=== PATIENT | female | born 1965 ===

== ENCOUNTER 2025-06-04 00:12 | Inpatient (IN) | payer OTHER ==
[~2025-06-04] VITALS: Ht 157.5 cm; Wt 79.3 kg
[2025-06-04] VITALS (10 sets, daily range): BP systolic 111–155; BP diastolic 66–86; PULSE 69–127; RESP 14–19; TEMP 97.3–98.7; O2SAT 93–98
--- NOTE | 2025-06-04 00:42 | ED.PDOC ---
History of Present Illness HPI Comments 59 year old female presents to the ED via EMS with a chief complaint of generalized weakness onset last night. Per EMS, patient was seen at [place] earlier today, had Mozeta infusion and was told weakness is a side effect. Family called 911, stated patient was weak, they were not able to take care of her. Patient states she is currently experiencing chills and feels weak. PMHx breast cancer. Denies chest pain, shortness of breath, fever, nausea, vomiting, diarrhea. No other symptoms or modifying factors present at this time. 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 Family History Family History: Reviewed,noncontributory to illness, No family hx of Cancer, No family hx of DM, No family hx of Heart dorian, No family hx of HTN, No family hx ofKidney dorian, No family hx of Liver dorian, No family hx of Lung dorian, No family hx of Stroke Social History Smoker: Non-Smoker Alcohol: Denies ETOH Use Drugs: Denies Drug Use Lives In: Home Constitutional: reports: chills, weakness; denies: diaphoresis, fatigue, fever, malaise, sweats, others EENTM: denies: blurred vision, double vision, ear bleeding, ear discharge, ear drainage, ear pain, ear ringing, eye pain, eye redness, hearing loss, mouth pain, mouth swelling, nasal discharge, nose bleeding, nose congestion, nose pain, photophobia, tearing, throat pain, throat swelling, voice changes, others Respiratory: denies: cough, hemoptysis, orthopnea, SOB at rest, shortness of breath, SOB with excertion, stridor, wheezing, others Cardiovascular: denies: chest pain, dizzy spells, diaphoresis, Dyspnea on exertion, edema, irregular heart beat, left arm pain, lightheadedness, palpitations, PND, syncope, others Gastrointestinal: denies: abdomen distended, abdominal pain, blood streaked bowels, constipated, diarrhea, dysphagia, difficulty swallowing, hematemesis, melena, nausea, poor appetite, poor fluid intake, rectal bleeding, rectal pain, vomiting, others Genitourinary: denies: abnormal vagina bleeding, burning, dyspareunia, dysuria, flank pain, frequency, hematuria, incontinence, pain, , vagina discharge, urgency, others Neurological: reports: weakness; denies: dizziness, fainting, headache, left sided numbness, left sided weakness, numbness, paresthesia, pre-existing deficit, right sided numbness, right sided weakness, seizure, speech problems, tingling, tremors, others Musculoskeletal: denies: back pain, gout, joint pain, joint swelling, muscle pain, muscle stiffness, neck pain, others Integumetry: denies: bruises, change in color, change in hair/nails, dryness, laceration, lesions, lumps, rash, wounds, others Allergic/Immunocompromised: denies: Difficulty Healing, Frequent Infections, Hives, Itching, others Hematologic/Lymphatic: denies: anemia, blood clots, easy bleeding, easy bruising, swollen glands, others Endocrine: denies: excessive hunger, excessive sweating, excessive thirst, excessive urination, flushing, intolerance to cold, intolerance to heat, unexplained weight gain, unexplained weight loss, others Psychiatric: denies: anxiety, bipolar disorder, depression, hopeless, panic disorder, schizophrenia, sleepless, suicidal, others All Other Systems: Reviewed and Negative Physical Exam General Appearance: Normal HEENT: Normal ENT Inspection, Pharynx Normal, TMs Normal Neck: Full Range of Motion, Non-Tender, Normal, Normal Inspection Respiratory: Chest Non-Tender, Lungs Clear, No Accessory Muscle Use, No Respiratory Distress, Normal Breath Sounds Cardiovascular: No Edema, No JVD, No Murmur, No Gallop, Normal Peripheral Pulses, Regular Rate/Rhythm Breast Exam: Deferred Gastrointestinal: No Organomegaly, Non Tender, No Pulsatile Mass, Normal Bowel Sounds, Soft Genitalia: Deferred Pelvic: Deferred Rectal: Deferred Extremities: No calf tenderness, Normal capillary refill, Normal inspection, Normal range of motion, Non-tender, No pedal edema Musculoskeletal : Apperance: Normal Neurologic: Alert, geometrician II-XII nml as Tested, No Motor Deficits, Normal Affect, Normal Mood, No Sensory Deficits Cerebellar Function: Normal Reflexes: Normal Skin: Dry, Normal Color, Warm Lymphatic: No Adenopathy Was a procedure done? Was a procedure done?: No Differential Dx Considerations may include: Electrolyte abnormalities, ACS, CVA, viral syndrome, medication reaction X-Ray, Labs, Meds, VS Vital Signs Date Time Temp Pulse Resp B/P (MAP) Pulse Ox O2 Delivery O2 Flow Rate FiO2 06/04/25 02:50 126 18 153/79 (103) 93 06/04/25 01:25 123 13 147/105 (119) 94 06/04/25 00:50 127 18 95 Room Air* 0 21 06/04/25 00:45 98.7 122 18 153/79 (103) 94 98.7 06/04/25 00:26 97.9 126 16 154/96 96 97.9 06/04/25 00:26 113 Lab Test 06/04/25 01:47 06/04/25 00:48 Range/Units Troponin I High Sensitivity 181 *H 104 *H </=34 ng/L White Blood Count 8.0 4.4-10.8 10^3/uL Red Blood Count 4.39 4.0-5.20 10^6/uL Hemoglobin 14.1 12.2-16.2 g/dL Hematocrit 41.1 36.0-46.0 % Mean Corpuscular Volume 93.6 80.0-100.0 fL Mean Corpuscular Hemoglobin 32.1 H 28.0-32.0 pg Mean Corpuscular Hemoglobin Concent 34.3 32.0-36.0 g/dL Red Cell Distribution Width 12.4 11.8-14.3 % Platelet Count 172 140-450 10^3/uL Mean Platelet Volume 7.7 6.9-10.8 fL Neutrophils (%) (Auto) 89.3 H 37.0-80.0 % Lymphocytes (%) (Auto) 6.3 L 10.0-50.0 % Monocytes (%) (Auto) 3.2 0.0-12.0 % Eosinophils (%) (Auto) 0.2 0.0-7.0 % Basophils (%) (Auto) 1.0 0.0-2.0 % Neutrophils # (Auto) 7.1 1.6-8.6 10 ^3/uL Lymphocytes # (Auto) 0.5 0.4-5.4 10 ^3/uL Monocytes # (Auto) 0.3 0-1.3 10 ^3/uL Eosinophils # (Auto) 0 0-0.8 10 ^3/uL Basophils # (Auto) 0.1 0-0.2 10 ^3/uL Nucleated Red Blood Cells 0.0 % Sodium Level 138 136-145 mmol/L Potassium Level 3.5 3.5-5.1 mmol/L Chloride Level 100 98-107 mmol/L Carbon Dioxide Level 27 20-31 mmol/L Anion Gap 11 5-15 Blood Urea Nitrogen 16 9-23 mg/dL Creatinine 0.99 0.550-1.02 mg/dL Glomerular Filtration Rate Calc 65 >90 mL/min BUN/Creatinine Ratio 16.2 10.0-20.0 Serum Glucose 174 H 74-106 mg/dL Lactic Acid Level 3.0 *H 0.4-2.0 mmol/L Calcium Level 9.6 8.7-10.4 mg/dL [place] [address] Ph: [phone] DIAGNOSTIC IMAGING Diagnostic Imaging Report : [id number] Signed PATIENT: ELVI SEPULVEDA ACCT: [id number] UNIT: [id number] : 1965 LOC: ER ROOM / BED: / AGE / SEX: 59 / F ADM STATUS: REG ER SERVICE ORDERING PHYSICIAN: VINOD VERAS MD PROCEDURE(s): CXRP - CHEST PORTABLE REASON: weakness ORDER NUMBER(s): [id number], ACCESSION NUMBER(s): [id number] EXAM: XY CHEST PORTABLE CLINICAL HISTORY: weakness TECHNIQUE: Single AP view of the chest WID: COMPARISON: None FINDINGS: Lines and tubes: None Chest: Mild cardiomegaly without pulmonary vascular congestion. No pleural effusion, pneumothorax, or consolidation. Linear left basilar scarring or atelectasis. The osseous structures are grossly intact. IMPRESSION: 1. Mild cardiomegaly. No acute cardiopulmonary abnormality. ATED BY: DYLAN LOWERY MD DICTATED DATE/TIME: 06/04/25 0116 SIGNED BY: DYLAN LOWERY MD SIGNED DATE/TIME: 06/04/25 0116 CC: Time of 1ST Reevaluation: 00:50 Reevaluation 1ST: Unchanged Patient Education/Counseling: Diagnosis, Treatment, Prognosis Family Education/Counseling: No Family Present SEPSIS Sepsis Screen Date sepsis recognized/suspect: Jun 04, 2025 Time Sepsis recognized/suspect: 003 Recent Procedure: No On Antibiotic Therapy: No Respiratory Rate >20: No Heart Rate >90: Yes Temp<36 C (96.8 F) or >38.3 C: No SBP <90 or MAP <65 mmHG: No New Acute Mental Status Change: No Is the patient on CPAP, BIPAP,: No Physician Orders Electrocardigram (06/04/25 00:29) Urinalysis (06/04/25 00:34) Chest Portable (06/04/25 00:34) Troponin-I Hs (06/04/25 03:34) NS (06/04/25 03:00) Vital Signs Date Time Temp Pulse Resp B/P (MAP) Pulse Ox O2 Delivery O2 Flow Rate FiO2 06/04/25 02:50 126 18 153/79 (103) 93 06/04/25 01:25 123 13 147/105 (119) 94 06/04/25 00:50 127 18 95 Room Air* 0 21 06/04/25 00:45 98.7 122 18 153/79 (103) 94 98.7 06/04/25 00:26 97.9 126 16 154/96 96 97.9 06/04/25 00:26 113 Laboratory Tests Test 06/04/25 00:48 Lactic Acid Level 3.0 mmol/L (0.4-2.0) *H White Blood Count 8.0 10^3/uL (4.4-10.8) Departure 1 Departure Time of Disposition: 03:01 (Patient with a worsening weakness and near-syncope. Patient found to have an elevated troponin elevated lactic acid. We will treat patient with the fluids and admit patient for further workup and expert consultation) Impression: Primary Impression: Near syncope Additional Impressions: Generalized weakness Elevated troponin Breast cancer Qualified Codes: C50.919 - Malignant neoplasm of unspecified site of unspecified female breast Disposition: ADMITTED INPATIENT Admit to: [facility] Condition: Guarded Critical Care Note Critical Care Time?: Yes Critical care comment: Near syncope with elevated troponin Authorized and Performed by: Vinod Veras MD Total critical care time: Approximately 38 minutes Due to a high probability of clinically significant, life threatening deterioration, the patient required my highest level of preparedness to intervene emergently and I personally spent this critical care time directly and personally managing the patient. This critical care time included obtaining a history; examining the patient; pulse oximetry; ordering and review of studies; arranging urgent treatment with development of a management plan; evaluation of patient's response to treatment; frequent reassessment; and, discussions with other providers. This critical care time was performed to assess and manage the high probability of imminent, life-threatening deterioration that could result in multi-organ failure. It was exclusive of separately billable procedures and treating other patients and teaching time. Please see my other sections and the rest of the note for further information on patient assessment and treatment. Stability Stability form required: No I personally scribed for VINOD VERAS MD ([email or web address]) on 06/04/25 at 00:42. Electronically submitted by Connie Marquez ([email or web address]). I personally scribed for VINOD VERAS MD ([email or web address]) on 06/04/25 at 01:27. Electronically submitted by Connie Marquez ([email or web address]). VINOD VERAS MD Jun 04, 2025 00:42
[2025-06-04 01:01] LABS: Hematocrit 41.1 % (36.0-46.0); Hemoglobin 14.1 g/dL (12.2-16.2); Mean Corpuscular Hemoglobin 32.1 pg (28.0-32.0); Mean Corpuscular Volume 93.6 fL (80.0-100.0); Nucleated Red Blood Cells % 0.0 %
[2025-06-04 01:11] LABS: Anion Gap 11 (5-15); Carbon Dioxide 27 mmol/L (20-31); Chloride 100 mmol/L (98-107); Sodium 138 mmol/L (136-145)
[2025-06-04 01:12] LABS: Calcium 9.6 mg/dL (8.7-10.4)
[2025-06-04 01:14] LABS: Potassium 3.5 mmol/L (3.5-5.1)
[2025-06-04 01:17] LABS: BUN/Creatinine Ratio 16.2 (10.0-20.0); Blood Urea Nitrogen 16 mg/dL (9-23)
[2025-06-04 01:19] LABS: Glucose 174 mg/dL (74-106)
--- NOTE | 2025-06-04 01:19 | DVH ---
EXAM: XY CHEST PORTABLE CLINICAL HISTORY: weakness TECHNIQUE: Single AP view of the chest WID: COMPARISON: None FINDINGS: Lines and tubes: None Chest: Mild cardiomegaly without pulmonary vascular congestion. No pleural effusion, pneumothorax, or consolidation. Linear left basilar scarring or atelectasis. The osseous structures are grossly intact. IMPRESSION: 1. Mild cardiomegaly. No acute cardiopulmonary abnormality.
[2025-06-04 01:23] LABS: Lactic Acid w/Reflex 3.0 mmol/L (0.4-2.0)
[2025-06-04] MEDS: SODIUM CHLORIDE 0.9% 1,000 ML IV ONE (03:26)
[2025-06-04] MEDS ORDERED: MORPHINE SULFATE INJ 2 MG/ml SYRG IV PRN (04:00)
[2025-06-04] MEDS ORDERED: NITROGLYCERIN 0.4 MG SL TAB SL PRN (04:00)
[2025-06-04] MEDS: SODIUM CHLORIDE 0.9% 500 ML IV ONE (05:00)
[2025-06-04] MEDS ORDERED: ACETAMINOPHEN 325 MG TAB PO PRN (05:00)
[2025-06-04] MEDS ORDERED: ALBUTEROL SULF 2.5 MG/0.5ML(0.5%) NEB SOLN NEB PRN (05:00)
--- NOTE | 2025-06-04 05:03 | DVHHP2 ---
History of Present Illness Reason for Visit: Generalized weakness History of Present Illness 59-year-old female presents for evaluation of generalized weakness. Patient is status post left mastectomy and currently undergoing chemotherapy. She had her chemotherapy infusion yesterday and shortly after she developed severe gener alized weakness with fatigue. On arrival patient was noted to have elevated troponin levels. She currently denies chest pain or shortness for breath. She reports experiencing chills. Past Medical History Cancer Past Surgical History Mastectomy Family History Noncontributory Smoke: No ALCOHOL: none Drugs: None Lives: with Family Review of Systems Review of Systems Review of systems are currently negative otherwise addressed in HPI. Allergies: Coded Allergies: NO KNOWN ALLERGIES (Unverified , 06/04/25) Medications Current Medications Medications Dose Ordered Sig/Gretel Route Start Time Stop Time Status Last Admin Dose Admin Nitroglycerin 0.4 mg Q5MINP PRN SL 06/04/25 04:00 Morphine Sulfate 2 mg Q30M PRN IV 06/04/25 04:00 Ceftriaxone Sodium 50 ml @ 100 mls/hr DAILY@09 IV 06/05/25 09:00 Aspirin 162 mg DAILY PO 06/04/25 10:00 Atorvastatin Calcium 10 mg HS PO 06/04/25 22:00 Hydrochlorothiazide 12.5 mg DAILY PO 06/04/25 10:00 Albuterol 2.5 mg Q6HPRN PRN NEB 06/04/25 05:00 Acetaminophen/ Hydrocodone Bitart 1 tab Q4HP PRN PO 06/04/25 05:00 Ondansetron HCl 4 mg Q4HP PRN IV 06/04/25 05:00 Enoxaparin Sodium 40 mg DAILY SC 06/04/25 10:00 UNV Acetaminophen 650 mg Q6HP PRN PO 06/04/25 05:00 Exam Vital Signs Vital Signs Date Time Temp Pulse Resp B/P (MAP) Pulse Ox O2 Delivery O2 Flow Rate FiO2 06/04/25 02:50 126 18 153/79 (103) 93 06/04/25 00:50 Room Air* 0 21 06/04/25 00:45 98.7 98.7 Exam Gen: 59-year-old female in mild distress Skin: Warm, dry, normal color and texture, no rash. HEENT: Normocephalic atraumatic, mucous membranes moist and pink. Neck: Cervical and supraclavicular nodes normal without enlargement, trachea is midline, thyroid gland is normal without masses. Pulmonary: Clear to auscultation and percussion bilaterally. Cardiac: Sinus tachycardia Abdomen: Soft, nontender, nondistended, bowel sounds present all 4 quadrants, no guarding, no rigidity, no organomegaly. Extremities: No cyanosis, clubbing, no edema Neuro: Cranial nerves II through XII grossly intact, normal affect and speech, no focal motor deficits. Labs/Xrays ORDERING PHYSICIAN: VINOD XIONG MD PROCEDURE(s): CXRP - CHEST PORTABLE REASON: weakness ORDER NUMBER(s): [id number], ACCESSION NUMBER(s): [id number] EXAM: XY CHEST PORTABLE CLINICAL HISTORY: weakness TECHNIQUE: Single AP view of the chest WID: COMPARISON: None FINDINGS: Lines and tubes: None Chest: Mild cardiomegaly without pulmonary vascular congestion. No pleural effusion, pneumothorax, or consolidation. Linear left basilar scarring or atelectasis. The osseous structures are grossly intact. IMPRESSION: 1. Mild cardiomegaly. No acute cardiopulmonary abnormality. Labs Test 06/04/25 03:30 06/04/25 03:00 06/04/25 00:48 Range/Units Troponin I High Sensitivity 267 *H </=34 ng/L Lactic Acid Level 3.6 *H 0.4-2.0 mmol/L White Blood Count 8.0 4.4-10.8 10^3/uL Red Blood Count 4.39 4.0-5.20 10^6/uL Hemoglobin 14.1 12.2-16.2 g/dL Hematocrit 41.1 36.0-46.0 % Mean Corpuscular Volume 93.6 80.0-100.0 fL Mean Corpuscular Hemoglobin 32.1 H 28.0-32.0 pg Mean Corpuscular Hemoglobin Concent 34.3 32.0-36.0 g/dL Red Cell Distribution Width 12.4 11.8-14.3 % Platelet Count 172 140-450 10^3/uL Mean Platelet Volume 7.7 6.9-10.8 fL Neutrophils (%) (Auto) 89.3 H 37.0-80.0 % Lymphocytes (%) (Auto) 6.3 L 10.0-50.0 % Monocytes (%) (Auto) 3.2 0.0-12.0 % Eosinophils (%) (Auto) 0.2 0.0-7.0 % Basophils (%) (Auto) 1.0 0.0-2.0 % Neutrophils # (Auto) 7.1 1.6-8.6 10 ^3/uL Lymphocytes # (Auto) 0.5 0.4-5.4 10 ^3/uL Monocytes # (Auto) 0.3 0-1.3 10 ^3/uL Eosinophils # (Auto) 0 0-0.8 10 ^3/uL Basophils # (Auto) 0.1 0-0.2 10 ^3/uL Nucleated Red Blood Cells 0.0 % Sodium Level 138 136-145 mmol/L Potassium Level 3.5 3.5-5.1 mmol/L Chloride Level 100 98-107 mmol/L Carbon Dioxide Level 27 20-31 mmol/L Anion Gap 11 5-15 Blood Urea Nitrogen 16 9-23 mg/dL Creatinine 0.99 0.550-1.02 mg/dL Glomerular Filtration Rate Calc 65 >90 mL/min BUN/Creatinine Ratio 16.2 10.0-20.0 Serum Glucose 174 H 74-106 mg/dL Calcium Level 9.6 8.7-10.4 mg/dL SEPSIS Sepsis Screen Date sepsis recognized/suspect: Jun 04, 2025 Time Sepsis recognized/suspect: 54 Recent Procedure: No On Antibiotic Therapy: No Respiratory Rate >20: No Heart Rate >90: Yes Temp<36 C (96.8 F) or >38.3 C: No SBP <90 or MAP <65 mmHG: No New Acute Mental Status Change: No Is the patient on CPAP, BIPAP,: No Physician Orders Electrocardigram (06/04/25 00:29) Urinalysis (06/04/25 00:34) Chest Portable (06/04/25 00:34) Admit (06/04/25 03:46) Nitroglycerin Sublingual (Ntrostat Subli (06/04/25 04:00) Morphine Sulfate Injection (06/04/25 04:00) Stat Ekg For Chest Pain (06/04/25 03:46) Notify Of Changes From Base (06/04/25 03:46) Ophthalmic Aide For 24 Hours (06/04/25 03:46) Emergency Dysrhythmia Protocol (06/04/25 03:46) Rhythm Strips Once Every Shift (06/04/25 03:46) Oxygen By Nasal Cannula (06/04/25 03:46) Blood Culture (06/04/25 04:49) B-Type Natriuretic Peptide (06/04/25 04:49) Sodium Chloride 0.9% (06/04/25 05:00) Aspirin Tablet (06/04/25 10:00) Atorvastatin (Lipitor) (06/04/25 22:00) * Cardiology Consult (06/04/25 04:49) Labetalol Hcl (Labetalol Hcl) (06/04/25 05:00) Hydrochlorothiazide Tablet (Hydrochlorot (06/04/25 10:00) D-Dimer (06/04/25 04:49) Albuterol Medneb (Ventolin Medneb) (06/04/25 05:00) Hydrocodone-Acet 5/325mg Tab ([place] 5/32 (06/04/25 05:00) Ondansetron Hcl (Zofran) (06/04/25 05:00) Enoxaparin Sodium (Lovenox) (06/04/25 10:00) Complete Blood Count (06/05/25 04:00) Comprehensive Metabolic Panel (06/05/25 04:00) Cardiac Diet-2gna,Lofat,Lochol (06/04/25 Breakfast) Echo 2d Mode Cardiac Dop (06/04/25 04:49) Condition: Fair (06/04/25 04:49) Acetaminophen Tablet (Tylenol Tablet) (06/04/25 05:00) Bedrest With Bathroom Privileg (06/04/25 04:49) Ceftriaxone 1gm/50ml D5w (Rocephin) (06/04/25 05:00) Ceftriaxone 1gm/50ml D5w (Rocephin) (06/05/25 09:00) Vital Signs Date Time Temp Pulse Resp B/P (MAP) Pulse Ox O2 Delivery O2 Flow Rate FiO2 06/04/25 02:50 126 18 153/79 (103) 93 06/04/25 01:25 123 13 147/105 (119) 94 06/04/25 00:50 127 18 95 Room Air* 0 21 06/04/25 00:45 98.7 122 18 153/79 (103) 94 98.7 06/04/25 00:26 97.9 126 16 154/96 96 97.9 06/04/25 00:26 113 Laboratory Tests Test 06/04/25 00:48 06/04/25 03:00 Lactic Acid Level 3.0 mmol/L (0.4-2.0) *H 3.6 mmol/L (0.4-2.0) *H White Blood Count 8.0 10^3/uL (4.4-10.8) Medications Medications Dose Ordered Sig/Gretel Route Start Time Stop Time Status Last Admin Dose Admin Sodium Chloride 1,000 ml @ 1,000 mls/hr Q1H ONCE IV 06/04/25 03:00 06/04/25 03:59 DC 06/04/25 03:26 1,000 MLS/HR Assessment/Plan Assessment/Plan Assessment Elevated troponin rule out NSTEMI Generalized weakness Breast cancer status post chemotherapy Possible early sepsis Plan Admit the patient to telemetry to the hospitalist Cardiology consultation Blood cultures pending Rocephin Maintenance IV fluids Continue treatment per orders. Plan discussed with: Patient My Orders Orders - KLEBER EDGAR Procedure Category Date Status Time Admit ADMIT 06/04/25 Transmitted 03:46 Nitroglycerin PHA 06/04/25 In Process Sublingual (Ntrostat 04:00 Morphine Sulfate PHA 06/04/25 In Process Injection 04:00 Stat Ekg For Chest [facility] 06/04/25 In Process Pain 03:46 Notify Of Changes [facility] 06/04/25 In Process From Base 03:46 Ophthalmic Aide For [facility] 06/04/25 In Process 24 Hours 03:46 Emergency Dysrhythmia [facility] 06/04/25 In Process Protocol 03:46 Rhythm Strips Once [facility] 06/04/25 In Process Every Shift 03:46 Oxygen By Nasal RT 06/04/25 Transmitted Cannula 03:46 Blood Culture PATI 06/04/25 Uncollected 04:49 B-Type Natriuretic LAB 06/04/25 In Process Peptide 04:49 Sodium Chloride 0.9% PHA 06/04/25 In Process 05:00 Aspirin Tablet PHA 06/04/25 In Process 10:00 Atorvastatin (Lipitor) PHA 06/04/25 In Process 22:00 * Cardiology Consult CONS 06/04/25 Transmitted 04:49 Labetalol Hcl PHA 06/04/25 In Process (Labetalol Hcl) 05:00 Hydrochlorothiazide PHA 06/04/25 In Process Tablet (Hydrochlorot 10:00 D-Dimer LAB 06/04/25 In Process 04:49 Albuterol Medneb PHA 06/04/25 In Process (Ventolin Medneb) 05:00 Hydrocodone-Acet PHA 06/04/25 In Process 5/325mg Tab ([place] 05:00 Ondansetron Hcl PHA 06/04/25 In Process (Zofran) 05:00 Enoxaparin Sodium PHA 06/04/25 Logged (Lovenox) 10:00 Complete Blood Count LAB 06/05/25 Verified 04:00 Comprehensive LAB 06/05/25 Verified Metabolic Panel 04:00 Cardiac DIET 06/04/25 Transmitted Diet-2gna,Lofat,Lochol Breakfast Echo 2d Mode Cardiac US 06/04/25 Logged DOP 04:49 Condition: Fair [facility] 06/04/25 In Process 04:49 Acetaminophen Tablet PHA 06/04/25 In Process (Tylenol Tablet) 05:00 Bedrest With Bathroom [facility] 06/04/25 In Process Privileg 04:49 Ceftriaxone 1gm/50ml PHA 06/04/25 In Process D5w (Rocephin) 05:00 Ceftriaxone 1gm/50ml PHA 06/05/25 In Process D5w (Rocephin) 09:00 Date of Service: Jun 04, 2025 Billing Provider: KLEBER EDGAR Common Visit Codes: [id number] INP/OBS CARE (HIGH) KLEBER EDGAR Jun 04, 2025 05:03
[2025-06-04] MEDS: LABETALOL HCL 20 MG/4 ML VL IV ONE (06:30)
--- NOTE | 2025-06-04 06:51 | ECG ---
[facility] Test Date: 2025-06-04 Test Time: 00:26:45 Pat Name: ELVI SEPULVEDA Department: [facility] ED Room: [id number] Gender: F [employer]: BOBO : [id number] Requested By: VINOD XIONG Order Number: [id number] Reading MD: Brady Damico Measurements Intervals [place] Rate: 113 P: 38 PA: 192 QRS: -13 QRSD: 85 T: 85 QT: 319 QTc: 438 Interpretive Statements Sinus tachycardia Left ventricular hypertrophy Anterior Q waves, possibly due to LVH Electronically Signed On 06-05-2025 17:01:55 PDT by Brady Damico Please click the below link to view image of tracing.
[2025-06-04] MEDS: HYDROcodone-ACET 5/325MG TAB PO PRN (07:16)
--- NOTE | 2025-06-04 09:58 | DVHINCON2 ---
Date Seen: Jun 04, 2025 Referring Physician FIONA Caceres Reason for Consultation Elevated troponin History of Present Illness This is a 59-year-old female patient who presents to emergency room with chief complaint of generalized weakness and chills. The patient reports that on the day of emergency room arrival she underwent a chemotherapy transfusion at [facility] earlier in the day. After being sent home, the patient reports feeling chills and generalized weakness to the point where she felt as though she was unable to walk; thus, prompting her to come to the emergency room. Cardiology has been consulted at this time for elevated troponin. Initial twelve lead electroc ardiogram reveals sinus tachycardia. Initial troponin level of 104ng/L with up trend and current peak level at 267ng/L. The patient denies any cardiac symptoms such as chest pain, palpitations, shortness of breath, or dizziness. Significant past medical history includes hypertension, dyslipidemia, breast cancer since 2019 currently undergoing chemotherapy, spinal fracture, and o besity. The patient states that she has finished radiation therapy and is now undergoing chemotherapy. Past Medical History Past medical history reviewed. No other significant than mentioned above. Past Surgical History Left breast mastectomy in 2021 Appendectomy Family History Family history reviewed. Social History Denies the use of tobacco, alcohol or illicit drugs. Allergies: Coded Allergies: NO KNOWN ALLERGIES (Unverified , 06/04/25) Home Meds Home medications reviewed. Current Medications Current Medications Medications (Trade) Dose Ordered Sig/Gretel Route PRN Reason Start Time Stop Time Status Last Admin Nitroglycerin (Ntrostat Sublingual) 0.4 mg Q5MINP PRN SL FOR CHEST PAIN 06/04/25 04:00 Morphine Sulfate 2 mg Q30M PRN IV FOR CHEST PAIN 06/04/25 04:00 Ceftriaxone Sodium 50 ml @ 100 mls/hr DAILY@09 IV 06/05/25 09:00 Aspirin 162 mg DAILY PO 06/04/25 10:00 Atorvastatin Calcium (Lipitor) 10 mg HS PO 06/04/25 22:00 Hydrochlorothiazide (hydroCHLOROthiazide TABLET) 12.5 mg DAILY PO 06/04/25 10:00 Albuterol (Ventolin Medneb) 2.5 mg Q6HPRN PRN NEB SHORTNESS OF BREATH 06/04/25 05:00 Acetaminophen/ Hydrocodone Bitart (Marshall 5/325MG Tab) 1 tab Q4HP PRN PO MODERATE PAIN (4-6 PAIN SCALE) 06/04/25 05:00 06/04/25 07:16 Ondansetron HCl (Zofran) 4 mg Q4HP PRN IV NAUSEA / VOMITING 06/04/25 05:00 Enoxaparin Sodium (Lovenox) 40 mg DAILY SC 06/04/25 10:00 Acetaminophen (Tylenol Tablet) 650 mg Q6HP PRN PO PAIN SCALE 1-3 OR TEMP>100.4 06/04/25 05:00 Review of Systems Constitutional: Generalized weakness, chills Ears, Nose, & Throat: No symptom reported Eyes: No symptom reported Neurological: No symptoms reported Pulmonary/Respiratory: No symptoms reported Cardiovascular: No symptom reported Gastrointestinal: No symptom reported Genitourinary: No symptom reported Musculoskeletal: No symptom reported Skin: No symptom reported Psychiatric: No symptom reported Endocrine: No symptom reported Hematologic/Lymphatic: No symptom reported Vital Signs Vital Signs Date Time Temp Pulse Resp B/P (MAP) Pulse Ox O2 Delivery O2 Flow Rate FiO2 06/04/25 08:10 103 14 155/86 (109) 95 06/04/25 07:30 Room Air* 0 21 06/04/25 00:45 98.7 98.7 Physical Exam General Appearance: Cooperative. Well-developed. Well-nourished. No acute distress. Pulmonary/Respiratory: Clear, bilateral breaths sounds. Cardiovascular/Chest: Regular rate and rhythm. Peripheral Pulses: 2+ Radial (R). 2+ Radial (L). 2+ Pedal (R). 2+ Pedal (L) Abdominal Exam: Normal bowel sounds. Ankle Exam: Negative ankle edema Lower extremities: Negative lower extremity edema Neuro/Mental Status: A/OX4, coherent. Thoughts/Psych: Normal thought pattern. Appropriate mood and affect. Good judgment and insight. Appearance: No acute distress. Skin Exam: Normal inspection. Normal color. Warm and dry. Labs/Diagnostic Data Labs Test 06/04/25 03:30 06/04/25 03:00 06/04/25 00:48 Range/Units Troponin I High Sensitivity 267 *H </=34 ng/L D-Dimer, Quantitative 0.91 H 0.0-0.49 mg/L FEU Lactic Acid Level 3.6 *H 0.4-2.0 mmol/L White Blood Count 8.0 4.4-10.8 10^3/uL Red Blood Count 4.39 4.0-5.20 10^6/uL Hemoglobin 14.1 12.2-16.2 g/dL Hematocrit 41.1 36.0-46.0 % Mean Corpuscular Volume 93.6 80.0-100.0 fL Mean Corpuscular Hemoglobin 32.1 H 28.0-32.0 pg Mean Corpuscular Hemoglobin Concent 34.3 32.0-36.0 g/dL Red Cell Distribution Width 12.4 11.8-14.3 % Platelet Count 172 140-450 10^3/uL Mean Platelet Volume 7.7 6.9-10.8 fL Neutrophils (%) (Auto) 89.3 H 37.0-80.0 % Lymphocytes (%) (Auto) 6.3 L 10.0-50.0 % Monocytes (%) (Auto) 3.2 0.0-12.0 % Eosinophils (%) (Auto) 0.2 0.0-7.0 % Basophils (%) (Auto) 1.0 0.0-2.0 % Neutrophils # (Auto) 7.1 1.6-8.6 10 ^3/uL Lymphocytes # (Auto) 0.5 0.4-5.4 10 ^3/uL Monocytes # (Auto) 0.3 0-1.3 10 ^3/uL Eosinophils # (Auto) 0 0-0.8 10 ^3/uL Basophils # (Auto) 0.1 0-0.2 10 ^3/uL Nucleated Red Blood Cells 0.0 % Sodium Level 138 136-145 mmol/L Potassium Level 3.5 3.5-5.1 mmol/L Chloride Level 100 98-107 mmol/L Carbon Dioxide Level 27 20-31 mmol/L Anion Gap 11 5-15 Blood Urea Nitrogen 16 9-23 mg/dL Creatinine 0.99 0.550-1.02 mg/dL Glomerular Filtration Rate Calc 65 >90 mL/min BUN/Creatinine Ratio 16.2 10.0-20.0 Serum Glucose 174 H 74-106 mg/dL Calcium Level 9.6 8.7-10.4 mg/dL B-Type Natriuretic Peptide 20.66 0-100 pg/mL Assessment Lactic acidosis NSTEMI, likely type II Rule out structural heart disease Hypertension Dyslipidemia Hypomagnesemia Type 2 diabetes mellitus Breast cancer currently undergoing chemotherapy Obesity Plan/Recommendation We will continue with the following plan/recommendations (Dr. Damico): We will proceed with obtaining a transthoracic echocardiogram to evaluate cardiac function. Twelve lead electrocardiogram reviewed and reveals no significant ST segment changes. Patient denies any cardiac symptoms. Elevated troponin level likely in the setting of demand mismatch ischemia. Elevated lactic acid level noted. Continue with blood pressure control and lipid- lowering agent. Continue with close cardiac surveillance. Thank you for allowing us to care for this patient. Please call with any questions or concerns. Critical care time spent: 44 minutes This medical document was created using an electronic medical record system with voice recognition software and computerized dictation system. Although this document has been carefully reviewed, there might still be some phonetic and typographical errors. Occasional wrong-word or ``sound-alike substitutions may have occurred due to the inherent limitations of voice recognition software. These areas are purely typographical due to imperfections of the software programs and do not reflect any compromise in the patient's medical care. Please read the chart carefully and recognize, using context, where these substitutions have occurred. Plan discussed with: Patient NYHA Physical activity limitations: NA Date of Service: Jun 04, 2025 Billing Provider: MAN LYLE Cardiology Common Codes: [id number]-[id number] INP/OBS CARE (High) Cardiology Consultation Codes: [id number] CONSULT <45MIN MAN LYLE Jun 04, 2025 09:58
[2025-06-04] MEDS: ENOXAPARIN SOD 40 MG/0.4 ML SYRINGE SC SCH (10:00)
[2025-06-04] MEDS: hydroCHLOROthiazide 25 MG TAB PO SCH (10:48)
[2025-06-04 11:27] LABS: Triglycerides 103.0 mg/dL (< 150)
[2025-06-04 11:29] LABS: Cholesterol 161.0 mg/dL (< 200); HDL Cholesterol 44.0 mg/dL (40-59)
[2025-06-04 11:35] LABS: Magnesium 1.4 mg/dL (1.6-2.6)
--- NOTE | 2025-06-04 12:34 | DVHPN2 ---
Progress Note Date Seen: Jun 04, 2025 Medical Necessity Reason Pt with a Central, PICC or Fol: No Subjective Patient reports: No new complaints Review of Systems: HEENT:Normal, CVS:Normal, RESPIRATORY:Normal, GI:Normal, :Normal, MSK:Normal, NEURO:Normal Objective vital signs Vital Sign Date Time Temp Pulse Resp B/P (MAP) Pulse Ox O2 Delivery O2 Flow Rate FiO2 06/04/25 12:00 92 06/04/25 11:30 18 93 Room Air* 0 21 06/04/25 11:30 155/86 (109) 06/04/25 10:03 98.7 98.7 medications Current Medications Medications Dose Ordered Sig/Gretel Route Start Time Stop Time Status Last Admin Dose Admin Nitroglycerin 0.4 mg Q5MINP PRN SL 06/04/25 04:00 Morphine Sulfate 2 mg Q30M PRN IV 06/04/25 04:00 Ceftriaxone Sodium 50 ml @ 100 mls/hr DAILY@09 IV 06/05/25 09:00 Aspirin 162 mg DAILY PO 06/04/25 10:00 06/04/25 10:00 162 MG Atorvastatin Calcium 10 mg HS PO 06/04/25 22:00 Hydrochlorothiazide 12.5 mg DAILY PO 06/04/25 10:00 06/04/25 10:48 12.5 MG Albuterol 2.5 mg Q6HPRN PRN NEB 06/04/25 05:00 Acetaminophen/ Hydrocodone Bitart 1 tab Q4HP PRN PO 06/04/25 05:00 06/04/25 07:16 1 TAB Ondansetron HCl 4 mg Q4HP PRN IV 06/04/25 05:00 Enoxaparin Sodium 40 mg DAILY SC 06/04/25 10:00 06/04/25 10:00 40 MG Acetaminophen 650 mg Q6HP PRN PO 06/04/25 05:00 Examination: GENERAL:Normal, HEENT:Normal, NECK:Normal, LUNGS:Normal, CVS:Normal, ABDOMEN:Normal, MSK:Normal, SKIN:Normal, NEURO:Normal, :Normal laboratory and microbiology Laboratory Tests 06/04/25 00:48 Test 06/04/25 00:48 Range/Units Serum Glucose 174 H 74-106 mg/dL Problem List/Assessment/Plan Problem List/Assessment/Plan #1 nstemi: per cardiology #2 h/o left breast cancer/mastectomy #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
[2025-06-04] MEDS: MAGNESIUM SULFATE 1GM/100ML 100 ML IV SCH (18:00)
[2025-06-04 20:09] LABS: Urine Protein, UAD Negative (Negative)
[2025-06-04 20:22] LABS: Opiate Scree,Urine Neg (NEGATIVE)
[2025-06-04 20:31] LABS: Amphetamine Screen, Urine Neg (NEGATIVE); Barbiturate Scree,Urine Neg (NEGATIVE); Benzodiazephine Screen, Urine Neg (NEGATIVE); Cannabinoid Screen, Urine Neg (NEGATIVE); Cocaine Screen, Urine Neg (NEGATIVE); Phencyclidine Screen, Urine Neg (NEGATIVE)
[2025-06-04] MEDS: ATORVASTATIN 20 MG TAB PO SCH (21:12)
[2025-06-05] VITALS (10 sets, daily range): BP systolic 105–143; BP diastolic 53–97; PULSE 65–113; RESP 16–20; TEMP 97.9–98.6; O2SAT 93–98
[2025-06-05 06:22] LABS: Hematocrit 42.0 % (36.0-46.0); Hemoglobin 14.6 g/dL (12.2-16.2); Mean Corpuscular Hemoglobin 32.4 pg (28.0-32.0); Mean Corpuscular Volume 92.9 fL (80.0-100.0); Nucleated Red Blood Cells % 0.0 %
[2025-06-05 06:39] LABS: Albumin 4.2 g/dL (3.2-4.8); Alkaline Phosphatase 96 U/L (46-116); Anion Gap 11 (5-15); BUN/Creatinine Ratio 12.2 (10.0-20.0); Bilirubin, Total 0.6 mg/dL (0.2-1.0); Blood Urea Nitrogen 12 mg/dL (9-23); Carbon Dioxide 25 mmol/L (20-31); Magnesium 2.3 mg/dL (1.6-2.6)
[2025-06-05 06:45] LABS: Alanine Aminotransferase 43 U/L (7-40); Calcium 8.5 mg/dL (8.7-10.4); Chloride 96 mmol/L (98-107); Glucose 149 mg/dL (74-106); Potassium 2.9 mmol/L (3.5-5.1); Sodium 132 mmol/L (136-145); Total Protein 8.4 g/dL (5.7-8.2)
--- NOTE | 2025-06-05 12:01 | DVHSR ---
APPROVED REPORT EXAM: LIMITED Two-dimensional and M-mode echocardiogram with Doppler and color Doppler. Blood Pressure: 152/86 mmHg INDICATION Chest Pain RISK FACTORS Obesity: Height: 5' 2", Weight: 171 DIMENSIONS LVDd4.2 (3.8-5.7cm)LA (2D)3.3 (1.9-4.0cm)Aortic Root3.2 (2.0-3.7cm) LVDs2.7 (2.5-4.0cm)LA (MM) (1.9-4.0cm)Aortic Cusp Exc1.5 (1.5-2.0cm) EF (%) 65.0 (55-70%)Rt. Atrium3.7 (1.9-4.0cm)Asc. Aorta3.1 cm IVSd0.9 (0.7-1.1cm)RV (D) (1.8-2.4cm) PWd0.9 (0.7-1.1cm) Mitral Valve MitralMitral Stenosis E wave0.70m/sMV Mean GR.mmHg A wave0.70m/sMV Peak GR.mmHg E/A ratio1.02D MVAcm2 Aortic Valve Aortic ValveAortic Stenosis V11.10m/Holli Mean GR.6mmHg V21.60m/Holli Peak GR.10mmHg LVOT Diameter2.0 (1.8-2.4cm)Doppler AVA2.16cm2 Pulmonic Valve V20.70m/s Tricuspid Valve TR Velocity2.10m/s [id number] Other Information Quality : Technically LimitedRhythm : Technically limited study due to body habitus, patient unable to move. Conclusion lvef 55-60% mild to moderate LVH RV not well seen left atrium enlarged no severe valve abnormalities noted
--- NOTE | 2025-06-05 14:57 | DVHPN2 ---
Progress Note Date Seen: Jun 05, 2025 Medical Necessity Reason Pt with a Central, PICC or Fol: No Subjective Patient reports: No new complaints Review of Systems: HEENT:Normal, CVS:Normal, RESPIRATORY:Normal, GI:Normal, :Normal, MSK:Normal, NEURO:Normal Objective vital signs Vital Sign Date Time Temp Pulse Resp B/P (MAP) Pulse Ox O2 Delivery O2 Flow Rate FiO2 06/05/25 13:25 93 Room Air 06/05/25 13:25 0 21 06/05/25 12:30 98.4 79 20 124/97 (106) 98.4 Total Intake and Output 06/04/25 06/04/25 06/05/25 15:00 23:00 07:00 Intake Total 200 ml 210 ml Output Total 0 ml Balance 200 ml 210 ml medications Current Medications Medications Dose Ordered Sig/Gretel Route Start Time Stop Time Status Last Admin Dose Admin Nitroglycerin 0.4 mg Q5MINP PRN SL 06/04/25 04:00 Morphine Sulfate 2 mg Q30M PRN IV 06/04/25 04:00 Ceftriaxone Sodium 50 ml @ 100 mls/hr DAILY@09 IV 06/05/25 09:00 06/05/25 09:40 100 MLS/HR Aspirin 162 mg DAILY PO 06/04/25 10:00 06/05/25 09:42 162 MG Atorvastatin Calcium 10 mg HS PO 06/04/25 22:00 06/04/25 21:12 10 MG Hydrochlorothiazide 12.5 mg DAILY PO 06/04/25 10:00 06/05/25 09:42 12.5 MG Albuterol 2.5 mg Q6HPRN PRN NEB 06/04/25 05:00 Acetaminophen/ Hydrocodone Bitart 1 tab Q4HP PRN PO 06/04/25 05:00 06/04/25 07:16 1 TAB Ondansetron HCl 4 mg Q4HP PRN IV 06/04/25 05:00 Enoxaparin Sodium 40 mg DAILY SC 06/04/25 10:00 06/05/25 09:42 40 MG Acetaminophen 650 mg Q6HP PRN PO 06/04/25 05:00 Examination: GENERAL:Normal, HEENT:Normal, NECK:Normal, LUNGS:Normal, CVS:Normal, ABDOMEN:Normal, MSK:Normal, SKIN:Normal, NEURO:Normal, :Normal laboratory and microbiology Laboratory Tests 06/05/25 05:27 Test 06/05/25 05:27 Range/Units Serum Glucose 149 H 74-106 mg/dL Microbiology Date/Time Source Procedure Growth Status 06/04/25 19:01 Voided Urine Urine Culture - Preliminary Resulted Problem List/Assessment/Plan Problem List/Assessment/Plan #1 nstemi: per cardiology #2 h/o left breast cancer/mastectomy #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
[2025-06-05] MEDS: SODIUM CHLORIDE 0.9% 1,000 ML IV SCH (15:42)
[2025-06-05] MEDS: POTASSIUM CHLORIDE 60 MEQ, LIDOCAINE 1% (LOCAL ANESTH.) 6 ML in SODIUM CHL 0.9% 500 ML IV ONE (15:53)
--- NOTE | 2025-06-05 16:55 | DVHPN2 ---
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 Denies any cardiac symptoms at time of assessment Objective vital signs Vital Sign Date Time Temp Pulse Resp B/P (MAP) Pulse Ox O2 Delivery O2 Flow Rate FiO2 06/05/25 13:25 93 Room Air 06/05/25 13:25 0 21 06/05/25 12:30 98.4 79 20 124/97 (106) 98.4 Total Intake and Output 06/04/25 06/04/25 06/05/25 15:00 23:00 07:00 Intake Total 200 ml 210 ml Output Total 0 ml Balance 200 ml 210 ml medications Current Medications Medications Dose Ordered Sig/Gretel Route Start Time Stop Time Status Last Admin Dose Admin Nitroglycerin 0.4 mg Q5MINP PRN SL 06/04/25 04:00 Morphine Sulfate 2 mg Q30M PRN IV 06/04/25 04:00 Ceftriaxone Sodium 50 ml @ 100 mls/hr DAILY@09 IV 06/05/25 09:00 06/05/25 09:40 100 MLS/HR Aspirin 162 mg DAILY PO 06/04/25 10:00 06/05/25 09:42 162 MG Atorvastatin Calcium 10 mg HS PO 06/04/25 22:00 06/04/25 21:12 10 MG Albuterol 2.5 mg Q6HPRN PRN NEB 06/04/25 05:00 Acetaminophen/ Hydrocodone Bitart 1 tab Q4HP PRN PO 06/04/25 05:00 06/04/25 07:16 1 TAB Ondansetron HCl 4 mg Q4HP PRN IV 06/04/25 05:00 Enoxaparin Sodium 40 mg DAILY SC 06/04/25 10:00 06/05/25 09:42 40 MG Acetaminophen 650 mg Q6HP PRN PO 06/04/25 05:00 Sodium Chloride 1,000 ml @ 75 mls/hr [id number] IV 06/05/25 15:00 06/05/25 15:42 75 MLS/HR Saccharomyces Boulardii 250 mg DAILY PO 06/06/25 10:00 Examination: GENERAL:Abnormal (Generalized weakness), LUNGS:Normal, CVS:Normal, NEURO:Normal laboratory and microbiology Laboratory Tests 06/05/25 05:27 Test 06/05/25 05:27 Range/Units Serum Glucose 149 H 74-106 mg/dL Problem List/Assessment/Plan Problem List/Assessment/Plan Lactic acidosis, ?sepsis Urinary tract infection NSTEMI, likely type II Hypertension Dyslipidemia Hypomagnesemia Hypokalemia Type 2 diabetes mellitus Breast cancer currently undergoing chemotherapy Obesity Plan/Recommendations (Dr. Damico): Transthoracic echocardiogram reveals an EF of 55-60% without any wall motion abnormality. Twelve lead electrocardiogram reviewed and reveals no significant ST segment changes. Patient denies any cardiac symptoms. Elevated troponin level likely in the setting of demand mismatch ischemia from early sepsis and acute urinary tract infection. Continue with blood pressure control and lipid- lowering agent. Continue with close cardiac surveillance. There is no further inpatient cardiac workup indicated at this time. Please reconsult if needed. Thank you for allowing us to care for this patient. Please call with any questions or concerns. This medical document was created using an electronic medical record system with voice recognition software and computerized dictation system. Although this document has been carefully reviewed, there might still be some phonetic and typographical errors. Occasional wrong-word or ``sound-alike substitutions may have occurred due to the inherent limitations of voice recognition software. These areas are purely typographical due to imperfections of the software programs and do not reflect any compromise in the patient's medical care. Please read the chart carefully and recognize, using context, where these substitutions have occurred. Plan discussed with: Patient Date of Service: Jun 05, 2025 Billing Provider: MAN LYLE Common Visit Codes: [id number] INP/OBS CARE(HIGH) MNA LYLE Jun 05, 2025 16:54
[2025-06-06] VITALS (10 sets, daily range): BP systolic 102–131; BP diastolic 53–83; PULSE 75–128; RESP 15–18; TEMP 36.7; O2SAT 93–98
[2025-06-06] MEDS: ONDANSETRON HCL 4 MG/2 ML VIAL IV PRN (04:36)
[2025-06-06 07:48] LABS: Anion Gap 9 (5-15)
[2025-06-06 07:53] LABS: BUN/Creatinine Ratio 14.0 (10.0-20.0); Blood Urea Nitrogen 13 mg/dL (9-23)
[2025-06-06 07:54] LABS: Magnesium 2.4 mg/dL (1.6-2.6)
[2025-06-06 07:57] LABS: Calcium 7.2 mg/dL (8.7-10.4); Carbon Dioxide 18 mmol/L (20-31); Chloride 108 mmol/L (98-107); Glucose 158 mg/dL (74-106); Potassium 5.2 mmol/L (3.5-5.1); Sodium 135 mmol/L (136-145)
[2025-06-06] MEDS: FLORASTOR (S. BOULARDII) 250 MG CAP PO SCH (10:14)
--- NOTE | 2025-06-06 15:10 | DVHPN2 ---
Assessment/Plan Assessment/Plan Subjective 59 yo F with left breast cancer s/p mastectomy, HTN, obesity admitted for generalized weakness. Weakness started after chemotherapy infusion one day prior to admission, patient unable to walk, also complaining of diarrhea. In ED found to be tachycardic HR 126, elevated troponin 104, initially treated for suspected sepsis/UTI with ceftriaxone and IV fluids, started on aspirin, Lipitor, thiazide, and labetalol. Tachycardia has resolved, patient now hemodynamically stable. Objective Vital Signs BP 154/96 HR 126 RR 16 SPO2 96% Physical Examination Oriented Conjunctiva not pale Speaking in full sentences Clear breath sounds Regular rhythm no murmur Abdomen soft nontender No LE edema Laboratory, Imaging, and Diagnostic Test Results Admission Troponin 104 K 2.9 06/06/25 K 5.2 Blood culture negative Urine culture >100,000 CFU/mL mixed valeriano CXR admission cardiomegaly no acute cardiopulmonary abnormality Echo admission LVEF 55%, mild to moderate LVH, left atrium enlarged, no significant left valve abnormalities Assessment & Plan Generalized weakness s/p chemotherapy UTI Electrolyte imbalance HTN Breast cancer s/p mastectomy Obesity Diarrhea Continue IV fluids Monitor vitals, reassess strength Continue ceftriaxone Recheck potassium level Hold IV antihypertensives, continue PO Monitor stools Assess need for anxiolytic diet diabetic dvt ppx lovenox full code Plan discussed with: Patient My Orders Orders - MARGI STAHL MD Procedure Category Date Status Time * Medical Front Desk Specialist CONS 06/06/25 Transmitted Consult Basic Metabolic Panel LAB 06/06/25 Logged 14:03 Basic Metabolic Panel LAB 06/07/25 Verified 04:00 Complete Blood Count LAB 06/07/25 Verified 04:00 Date of Service: Jun 06, 2025 Billing Provider: MARGI STAHL MD Common Visit Codes: [id number] INP/OBS CARE(HIGH) MARGI STAHL MD Jun 06, 2025 15:10
[2025-06-06 17:51] LABS: Anion Gap 10 (5-15); Potassium 3.6 mmol/L (3.5-5.1); Sodium 137 mmol/L (136-145)
[2025-06-06 17:52] LABS: Calcium 7.5 mg/dL (8.7-10.4); Carbon Dioxide 18 mmol/L (20-31); Chloride 109 mmol/L (98-107)
[2025-06-06 17:57] LABS: BUN/Creatinine Ratio 23.1 (10.0-20.0); Blood Urea Nitrogen 21 mg/dL (9-23)
[2025-06-06 18:12] LABS: Glucose 122 mg/dL (74-106)
== END 2025-06-06 21:42 | disposition short-term general hospital (02) | DRG 871 ==
LOC: EDBD 00:12 → ER 00:12 → OVERFLOW 03:46 → DOU 15:45 → EAST 16:55 → TELE-EAST 06-05 23:29
PROVIDERS: ADMIT Student in an Organized Health Care Education/Training Program; ATTEND Student in an Organized Health Care Education/Training Program
DX: A41.9 Sepsis, unspecified organism (principal); I21.A1 Myocardial infarction type 2; E87.20 Acidosis, unspecified; N39.0 Urinary tract infection, site not specified; E78.5 Hyperlipidemia, unspecified; E11.9 Type 2 diabetes mellitus without complications; E66.9 Obesity, unspecified; E83.42 Hypomagnesemia; I10 Essential (primary) hypertension; E87.6 Hypokalemia; Z92.21 Personal history of antineoplastic chemotherapy; Z92.3 Personal history of irradiation; Z90.12 Acquired absence of left breast and nipple; Z85.3 Personal history of malignant neoplasm of breast; Z68.31 Body mass index [BMI] 31.0-31.9, adult
CPT/HCPCS: 36415; 71045; 80048; 80053; 80061; 80307; 81001; 83036; 83605; 83735; 83880; 84443; 84484; 85025; 85379; 87040; 87086; 87493; 93005; 93306; 96365; 96375; 99291; G0378; J2003; J2405